=== PATIENT | female | born 1975 | race Caucasian/White ===

== ENCOUNTER 2018-12-23 17:01 | Emergency (ER) | payer MEDICAID ==
[~2018-12-23] VITALS: Ht 157.5 cm; Wt 81.6 kg
--- NOTE | 2018-12-23 17:10 | NUR ---
[employer] AT BEDSIDE FOR PT INTERVIEW.
--- NOTE | 2018-12-23 17:11 | NUR ---
PT A/OX4, BIB [facility] FOR SUSPECTED ETOH AND DRUG OD. [facility] WAS CALLED BY [employer] AND PER PARAMEDICS, PT WAS FOUND W/ A BOTTLE OF VODKA AND SMELL OF ETOH ON BREATH. PER PARAMEDICS, PT REPORTED HAVING TAKEN "MOTHER'S PILLS" AND IS NOT ABLE TO RECALL THE NAME AND DOSAGE OF MEDICATION. PT ARRIVES W/ 18G IV ACCESS IN L AC. VSS. PT IS OF SLURRED SPEECH AND UNCOOPERATIVE W/ QUESTIONS FOR MEDICAL BACKGROUND. SMELL OF ETOH STILL ON BREATH. PT DENIES PAIN, C/P, SOB, N/V/D, DIZZINESS, HEADACHE.
[2018-12-23 17:38] LABS: BASOPHILS % (AUTO) 0.4 % (0.0-2.0); EOSINOPHILS # (AUTO) 0.2 K/uL (0.0-0.7); EOSINOPHILS % (AUTO) 3.2 % (0.0-7.0); HEMATOCRIT 40.6 % (31.2-41.9); HEMOGLOBIN 14.1 g/dL (10.9-14.3); LYMPHOCYTES # (AUTO) 3.8 K/uL (20.0-40.0); LYMPHOCYTES % (AUTO) 51.7 % (20.5-51.5); MEAN CORPUSCULAR HEMOGLOBIN 36.6 uug (24.7-32.8); MEAN CORPUSCULAR HGB CONC 35 g/dL (32.3-35.6); MEAN CORPUSCULAR VOLUME 105.2 fL (75.5-95.3); MONOCYTES # (AUTO) 0.7 K/uL (2.0-10.0); NEUTROPHILS # (AUTO) 2.5 K/uL (1.8-8.9); NEUTROPHILS % (AUTO) 34.7 % (38.5-71.5); PLATELET COUNT (AUTO) 375 K/uL (179-408); RED BLOOD CELL COUNT(AUTO) 3.86 MIL/uL (3.63-4.92); WHITE BLOOD COUNT (AUTO) 7.3 K/uL (3.8-11.8)
[2018-12-23 17:51] LABS: ACETAMINOPHEN < 2.0 ug/mL (10-30); ALANINE AMINOTRANSFERASE 385 U/L (14-59); ALKALINE PHOSPHATASE 147 U/L (50-136); ASPARTATE AMINOTRANSFERASE 242 U/L (15-37); BILIRUBIN,DIRECT 0.2 mg/dL (0.0-0.2); BILIRUBIN,TOTAL 0.3 mg/dL (0.2-1.0); CARBON DIOXIDE 26 mmol/L (21-32); CHLORIDE 105 mmol/L (98-107); CREATININE 0.9 mg/dL (0.6-1.3); GLUCOSE 114 mg/dL (74-106); POTASSIUM 3.2 mmol/L (3.5-5.1); UREA NITROGEN, BLOOD 12 mg/dL (7-18)
[2018-12-23 17:59] LABS: ETHANOL 448 MG/DL (0-0)
[2018-12-23 18:19] LABS: *BILIRUBIN,URIN NEGATIVE (NEGATIVE); *BLOOD, URINE Trace-intact (NEGATIVE); *CLARITY,URINE CLEAR (CLEAR); *KETONES,URINE NEGATIVE (NEGATIVE); *UROBILINOGEN,URINE 0.2 E.U./dl (NORMAL); LEUKOCYTE ESTERASE ,URINE NEGATIVE (NEGATIVE); NITRITE, URINE NEGATIVE (NEGATIVE); PH,URINE 6.5 (5.0-8.0); UGLUCOSE NEGATIVE (NEGATIVE)
[2018-12-23 18:26] LABS: *COLOR,URINE LIGHT YELLOW (YELLOW); RBC,URINE 0-3 /HPF (0-3); SQUAMOUS EPITHELIAL CELL,UR FEW /HPF (NONE SEEN); WBC,URINE NONE SEEN /HPF (0-3)
[2018-12-23 18:33] LABS: *AMPHETAMINE, URINE NEGATIVE (NEGATIVE); *BARBITURATE, URINE NEGATIVE (NEGATIVE); *CANNABINOID, URINE NEGATIVE (NEGATIVE); *COCCAINE, URINE NEGATIVE (NEGATIVE); *OPIATE, URINE NEGATIVE (NEGATIVE); *PHENCYCLIDINE SCREEN,URINE NEGATIVE (NEGATIVE)
--- NOTE | 2018-12-23 19:15 | NUR ---
SHIFT REPORT GIVEN TO MARIANA WOODARD.
--- NOTE | 2018-12-23 19:32 | NUR ---
Recieved report form Mohan WOODARD, assumed care of pt., pt. is resting in bed w/ eyes open, states she is depressed but denies feelings of wanting to hurt hurself, IV is patent and free of s/s infection, will continue to monitor, VSS, NAD, monitoring from nurse station,
--- NOTE | 2018-12-23 20:00 | NUR ---
Pt. asked to call her son Liam @ [phone] to let her know she was here, wrong number given- nobody by Liam at this number,
--- NOTE | 2018-12-23 20:15 | NUR ---
Pt. not in room and bag taken - apparent elopement Addendum: 12/24/18 at 0706 by [email or web address] IV manually removed by pt. along w/ motley catheter before elopement
--- NOTE | 2018-12-23 20:25 | NUR ---
Called [employer] number and spoke w/ plastic extrusion operator [phone] to report elopement
--- NOTE | 2018-12-23 20:34 | NUR ---
Pt. found in front of hospital in gown and was escorted back in, spoke w/ dandy operator [phone] @ [employer] non-emergency to cancel police report,
--- NOTE | 2018-12-23 20:50 | NUR ---
Security placed at bedside to watch pt.,
[2018-12-23 21:44] LABS: BILIRUBIN,DIRECT 0.2 mg/dL (0.0-0.2); BILIRUBIN,TOTAL 0.3 mg/dL (0.2-1.0); TOTAL PROTEIN, SERUM 8.1 g/dL (6.4-8.2)
--- NOTE | 2018-12-23 21:52 | NUR ---
Called [facility] for Psych. Eval - requested to have another alcohol level done - pt. must be under 0.1 for admit,
--- NOTE | 2018-12-23 22:17 | NUR ---
Pt. given dinner tray, resting in bed, NAD
--- NOTE | 2018-12-23 22:51 | NUR ---
Security at doorway for 1:1 sitter, pt. resting in bed w/ eyes closed, VSS, NAD
--- NOTE | 2018-12-23 23:24 | NUR ---
Received call from Sim ([employer] from [facility]) regarding ETOH level/liver panel. Per Sim, recheck ETOH level/liver panel at 0200 and call back with results at [phone]. LONI TODD made aware.
--- NOTE | 2018-12-24 00:02 | NUR ---
Pt. resting in bed w/ eyes closed, NAD, security outside door,
--- NOTE | 2018-12-24 01:33 | NUR ---
Pt. resting in bed w/ eyes closed, security at door for 1:1 monitoring, NAD, VSS
--- NOTE | 2018-12-24 01:50 | NUR ---
irrigation technician. at bedside for blood draw, pt. resting in bed w/ eyes cloused, is rousable, NAD
--- NOTE | 2018-12-24 02:03 | NUR ---
Gave pt. water and extra pillow,
[2018-12-24 02:13] LABS: BILIRUBIN,DIRECT 0.1 mg/dL (0.0-0.2); BILIRUBIN,TOTAL 0.3 mg/dL (0.2-1.0); TOTAL PROTEIN, SERUM 7.1 g/dL (6.4-8.2)
--- NOTE | 2018-12-24 02:20 | NUR ---
Called [facility] and spoke w/ Don to report 0200 Lab draw alcohol/LFT results,
--- NOTE | 2018-12-24 04:23 | NUR ---
Pt. asks to call son but it is suggested she wait a couple hours for a more appropriate time when the 16 year old is expected to be awake,
--- NOTE | 2018-12-24 06:37 | NUR ---
Lab. tech. at bedside for blood draw,
--- NOTE | 2018-12-24 07:09 | NUR ---
CRISIS PRODUCTION SUPERVISOR OFF SHIFT ANIA WAS CALLED TO EVALUATE THE PT. BUCK IS 2 HRS.
[2018-12-24] MEDS ORDERED: ONDANSETRON 4 MG/2 ML VIAL ONE (08:01)
[2018-12-24 08:55] VITALS: BP 131/91
--- NOTE | 2018-12-24 08:55 | NUR ---
PT WAS EVALUATED BY CRISIS LASER SPECIALIST ANIA. PT WAS D/C'd TO HOME BY DR HART. D/C INSTRUCTIONS GIVEN TO THE PT.
[2018-12-24] MEDS ORDERED: ONDANSETRON 4 MG/2 ML VIAL IM ONE (09:00)
== END 2018-12-24 08:57 | disposition home or self-care (01) ==
LOC: ER 17:01
DX: T39.1X1A Poisoning by 4-Aminophenol derivatives, accidental (unintentional), initial encounter (principal); F10.129 Alcohol abuse with intoxication, unspecified; Y92.89 Other specified places as the place of occurrence of the external cause; Y90.8 Blood alcohol level of 240 mg/100 ml or more
CPT/HCPCS: 36415 ×2; 80048; 80076 ×3; 80307; 81001; 84702; 85025; 96372; 99283; G0480 ×4; G0481; J2405; A4663; C1758